=== PATIENT | female | born 1995 | race Caucasian/White ===

== ENCOUNTER 2018-02-16 19:27 | Emergency (ER) | payer BC ==
[~2018-02-16] VITALS: Ht 170.2 cm; Wt 63.0 kg
[2018-02-16 19:29] VITALS: TEMP 36.8; Ht 170.2 cm; Wt 63.0 kg
--- NOTE | 2018-02-16 20:11 | DIAGNOSTIC IMAGING REPORT ---
L ANKLE MIN 3 VIEWS ROUTINE HISTORY: 22 years-old Female left ankle pain acute left ankle pain COMPARISON: None available TECHNIQUE: 3 views of the left ankle FINDINGS: There is moderate soft tissue swelling about the ankle, greatest anterolaterally with small to moderate joint effusion. No acute fracture, dislocation or osteochondral defect. No significant degenerative changes or opaque foreign body. IMPRESSION: 1. Moderate anterolateral soft tissue swelling without fracture. 2. Small to moderate joint effusion. The above report was generated using voice recognition software. It may contain grammatical, syntax or spelling errors. Electronically signed by: Michael Malagon M.D. 02/16/2018 8:10 PM Dictated Date/Time: 02/16/2018 8:09 PM
--- NOTE | 2018-02-16 20:41 | EMERGENCY ROOM VISIT NOTE ---
ED Visit Note First contact with patient: 19:32 CHIEF COMPLAINT: Left ankle pain HISTORY OF PRESENT ILLNESS: This 22-year-old female patient presents to the emergency department, ambulatory, approximately 24 hours after sustaining an injury to the left ankle and foot with a twisting, inversion motion while walking. Patient states she was wearing sneakers when she twisted the ankle. The patient complains of pain along the outside of the ankle. The patient denies pain of the foot. The patient rates the pain as sharp and 4/10. The patient is able to bear weight on the foot. Constant pain, worse with movement , weight bearing, and the dependent position. No knee pain, the patient is able to move their toes. No numbness or weakness of the foot, no laceration. The patient has not had a previous fracture to this ankle, but states she did have a recent sprain in October. The patient has taken Tylenol for the pain. The patient denies any other injury. REVIEW OF SYSTEMS: A 6 system review of systems was completed with positives and pertinent negatives listed in the HPI. ALLERGIES: None MEDICATIONS: None PMH: None SOCIAL HISTORY: The patient is a [employer] student. She lives locally with her roommates. She denies drug, alcohol, tobacco use. PHYSICAL EXAM: Vital Signs: Reviewed Nurse's notes, vital signs stable. GENERAL : This is a 22-year-old white female, no acute distress, but appears in pain, well-developed, well-nourished. MENTAL STATUS: Alert, oriented to person place and time, and cooperative. MUSCULOSKELETAL: The left ankle is swollen and tender over the lateral malleolus, but the skin is intact and there is no ligamentous instability. There is no fifth metatarsal tenderness. There is no tenderness over the rest of the foot. There is no calf or tibia/fibular tenderness. There is no visual deformity. The foot and toes are warm and well- perfused. Dorsalis pedis pulse 2+. Sensation to pain and light touch is intact. Capillary refill less than 2 seconds. RADIOLOGY: L ANKLE MIN 3 VIEWS ROUTINE HISTORY: 22 years-old Female left ankle pain acute left ankle pain COMPARISON: None available TECHNIQUE: 3 views of the left ankle FINDINGS: There is moderate soft tissue swelling about the ankle, greatest anterolaterally with small to moderate joint effusion. No acute fracture, dislocation or osteochondral defect. No significant degenerative changes or opaque foreign body. IMPRESSION: 1. Moderate anterolateral soft tissue swelling without fracture. 2. Small to moderate joint effusion. The above report was generated using voice recognition software. It may contain grammatical, syntax or spelling errors. Electronically signed by: Michael Malagon M.D. 02/16/2018 8:10 PM Dictated Date/Time: 02/16/2018 8:09 PM EMERGENCY DEPARTMENT COURSE: I examined the patient. She was offered analgesics and declines. X-rays of the left ankle were reviewed by myself and read by radiology and reveal no acute fracture. A gel splint was applied to the ankle under my direction and the position was satisfactory. Neurovascular status was rechecked and intact. I offered crutches and the patient declines. Charge instructions reviewed. The patient was discharged home in good condition. I attest that I have personally reviewed the patient's current medication list. Patient was found to have normal blood pressure on screening and does not require follow-up. Etiologies such as soft tissue injury, fracture, dislocation, neurovascular compromise, compartment syndrome, as well as others were entertained. DIAGNOSIS: Left ankle sprain The chart was completed utilizing [employer] Speech voice recognition software. Grammatical errors, random word insertions, pronoun errors, and incomplete sentences are an occasional consequence of this system due to software limitations, ambient noise, and hardware issues. Any formal questions or concerns about the content, text, or information contained within the body of this dictation should be directly addressed to the provider for clarification. Vital Signs Date Time Temp Pulse Resp B/P (MAP) Pulse Ox O2 Delivery O2 Flow Rate FiO2 02/16/18 19:29 36.8 95 18 123/78 94 Room Air Departure Information Impression Primary Impression: Left ankle sprain Dispostion Home / Self-Care Condition GOOD Referrals No Doctor, Assigned (PCP) [facility] Patient Instructions ED Sprain Ankle, [facility] Additional Instructions You have been treated in the Emergency Department for an Ankle sprain. For pain control, you can use the following [id number] medicines (if >12 yo): Ibuprofen(Motrin, Advil) may be used for fever or pain. Use 600mg every six hours as needed. Take with food. Avoid using more than 2400mg in a 24 hour period. Do not use 2400mg per day for more than three consecutive days without physician direction. Prolonged inappropriate use can lead to stomach upset or ulcers. (AND/OR) Acetaminophen(Tylenol) may be used for fever or pain. Use 1000mg every six hours as needed. Avoid using more than 3000mg in a 24 hour period. If this is a recent injury (<24 hrs), ice can be applied to the area of pain for the first 3 days to help decrease pain and inflammation. Keep the ankle brace/splint in place when up and moving around until cleared by [facility]thopedics. Return to the Emergency Department if your current symptoms worsen despite treatment course outlined above, or if you develop any of the following symptoms : intractable pain despite aforementioned treatment course or new onset of numbness or tingling of the foot. Problem Qualifiers Primary Impression: Left ankle sprain Encounter type: initial encounter Involved ligament of ankle: unspecified ligament Qualified Codes: S93.402A - Sprain of unspecified ligament of left ankle, initial encounter
[2018-02-16 20:59] VITALS: BP 124/81; PULSE 78; O2SAT 99
== END 2018-02-16 20:58 | disposition home or self-care (01) ==
LOC: C.EDB 19:28 → C.EDD 20:58
DX: S93.402A Sprain of unspecified ligament of left ankle, initial encounter (principal); X50.0XXA Overexertion from strenuous movement or load, initial encounter